=== PATIENT | male | born 1965 | race Two or more races ===

== ENCOUNTER 2018-03-09 22:58 | Emergency (ER) | payer SELFPAY ==
[2018-03-09 23:03] VITALS: TEMP 97.9
--- NOTE | 2018-03-10 00:19 | ED PDOC ---
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 Due to patient's highly intoxicated state, history is limited. Patient admits to drinking heavily tonight, but is unable to provide additional history. PMD none provided Past Medical History Reviewed: Historical Data, Nursing Documentation, Vital Signs Vital Signs: Last Vital Signs Temp 97.9 F 03/09/18 23:00 Pulse 72 03/09/18 23:00 Resp 18 03/09/18 23:00 BP 144/68 03/09/18 23:00 Pulse Ox 98 03/09/18 23:00 - Medical History PMH: No Chronic Diseases - Surgical History Surgical History: No Surg Hx - Family History Family History: States: Unknown Family Hx - Allergies Allergies/Adverse Reactions: Allergies Allergy/AdvReac Type Severity Reaction Status Date / Time No Known Allergies Allergy Verified 03/09/18 23:00 Review of Systems ROS Statement: Except As Marked, All Systems Reviewed And Found Negative Constitutional: Positive for: Other (intoxication) Physical Exam - Reviewed Nursing Documentation Reviewed: Yes Vital Signs Reviewed: Yes - Physical Exam Appears: Positive for: In Acute Distress (acute psychiatric distress; uncooperative) Head Exam: Positive for: ATRAUMATIC, NORMAL INSPECTION, NORMOCEPHALIC Skin: Positive for: Normal Color, Warm, Dry Eye Exam: Positive for: EOMI, Normal appearance, PERRL Neck: Positive for: Normal, Painless ROM, Supple Cardiovascular/Chest: Positive for: Regular Rate, Rhythm. Negative for: Murmur Respiratory: Positive for: Normal Breath Sounds. Negative for: Respiratory Distress Gastrointestinal/Abdominal: Positive for: Normal Exam, Soft. Negative for: Tenderness Back: Positive for: Normal Inspection. Negative for: Decreased ROM Extremity: Positive for: Normal ROM. Negative for: Deformity Lymphatic: Negative for: Adenopathy Neurologic/Psych: Positive for: Alert, Gait (unsteady), Other (poor thought process and judgement skills ). Negative for: Oriented - ECG O2 Sat by Pulse Oximetry: 98 (RA) Pulse Ox Interpretation: Normal Medical Decision Making Medical Decision Making: Time; 23:20 Impression: alcohol intoxication Initial Plan: --Alcohol serum --Ativan 2 mg IM --Haldol 5 mg IM Patient attempted to leave his room multiple times despite having unsteady gait and being redirected several times. He requires medications for acute alcohol psychosis and safety reasons. 11:50 --Patient is sleeping in room comfortably. ---- Scribe Attestation: Documented by Mary Kay Honeycutt, acting as a scribe for Lulú Slaughter MD Provider Scribe Attestation: All medical record entries made by the Scribe were at my direction and personally dictated by me. I have reviewed the chart and agree that the record accurately reflects my personal performance of the history, physical exam, medical decision making, and the department course for this patient. I have also personally directed, reviewed, and agree with the discharge instructions and disposition. Disposition - Clinical Impression Clinical Impression: Alcohol abuse with intoxication - Patient ED Disposition Is Patient to be Admitted: Transfer of Care - Disposition Disposition: Transfer of Care Disposition Time: 00:00 Condition: STABLE Instructions: Effects of Alcohol on Your Health Forms: [employer] (Scottish) Print Language: IRAQI Patient Signed Over To: Joseph Jackson Handoff Comments: pending sobriety
[2018-03-10 03:10] VITALS: RESP 16
--- NOTE | 2018-03-10 05:49 | ED PDOC ---
- ECG O2 Sat by Pulse Oximetry: 96 (RA) Pulse Ox Interpretation: Normal Medical Decision Making Medical Decision Makin:00 --Care endorsed to me by Dr. Slaughter pending sobriety. 05:45 Upon reevaluation, patient has steady gait and clear speech. He is stable for discharge. Disposition - Clinical Impression Clinical Impression: Alcohol abuse with intoxication - POA Present On Arrival: None - Disposition Disposition: Routine/Home Disposition Time: 06:00 Condition: STABLE Instructions: Effects of Alcohol on Your Health Forms: [facility] (Urdu) Print Language: [place]
[2018-03-10 05:54] VITALS: BP 118/65; PULSE 84
[2018-03-13 15:06] VITALS: O2SAT 98
== END 2018-03-10 06:17 | disposition home or self-care (01) ==
LOC: H.ER 22:58
DX: F10.129 Alcohol abuse with intoxication, unspecified (principal); Y90.7 Blood alcohol level of 200-239 mg/100 ml
CPT/HCPCS: 96372; 99283; G0480; J1630; J2060